=== PATIENT | female | born 1990 | race Two or more races ===

== ENCOUNTER 2019-04-15 19:53 | Emergency (ER) | payer SELFPAY ==
[~2019-04-15] VITALS: Ht 157.5 cm; Wt 63.5 kg
--- OUTSIDE RECORDS SUMMARY | 2019-04-15 19:56 | XMS REPORT | Continuity of Care Document ---
Author Author [facility] Address Unknown Phone Unavailable Care Team Providers Care Burrer Hand Name Role Phone [employer] Unavailable Unavailable Problems Problem Status Onset Date Classification Date Reported Comments Source Generalized anxiety disorder Active 04/13/2019 [facility] Language barrier, cultural differences Active 04/13/2019 [facility] ONDINA Active 04/13/2019 [facility] Medications Medication Details Route Status Patient Instructions Ordering Provider Order Date Source FLUoxetine (PROZAC) 10 mg capsule Take 2 capsules by mouth daily. Oral Active 04/10/2019 [facility] propranolol (INDERAL) 10 mg tablet Take 1 tablet by mouth 2 times daily as needed (anxiety). Oral Active 04/10/2019 [facility] FLUoxetine (PROZAC) 10 mg capsule Take 1 capsule by mouth daily. Oral No Longer Active 02/20/2019 [facility] FLUoxetine (PROZAC) 20 mg capsule Take 2 capsules by mouth daily. Oral Active 12/12/2018 [facility] propranolol (INDERAL) 10 mg tablet Take 1 tablet by mouth daily as needed for up to 60 days (take as needed for anxiety). Oral No Longer Active 12/12/2018 [facility] FLUoxetine (PROZAC) 20 mg capsule Take 2 capsules by mouth daily. Oral No Longer Active 12/12/2018 [facility] FLUoxetine (PROZAC) 20 mg capsule Take 2 capsules by mouth daily for 60 days. Oral No Longer Active 10/25/2018 [facility] propranolol (INDERAL) 10 mg tablet Take 1 tablet by mouth daily as needed for up to 60 days (take as needed for anxiety). Oral No Longer Active 10/25/2018 [facility] FLUoxetine (PROZAC) 20 mg capsule Take 2 capsules by mouth daily for 60 days. Oral No Longer Active 10/25/2018 [facility] Allergies, Adverse Reactions, Alerts No Known Medication Allergies Immunizations No Data Provided for This Section Results No Data Provided for This Section Pathology Reports No Data Provided for This Section Diagnostic Reports No Data Provided for This Section Consultation Notes No Data Provided for This Section Discharge Summaries No Data Provided for This Section History and Physicals No Data Provided for This Section Vital Signs Vital Sign Value Date Comments Source Systolic (mm Hg) 141 04/10/2019 [facility] Diastolic (mm Hg) 92 04/10/2019 [facility] Heart Rate 95 04/10/2019 [facility] Temperature Oral (F) 37.06 Tabitha 04/10/2019 [facility] Respitory Rate 18 04/10/2019 [facility] Height 157.5 cm 04/10/2019 [facility] Weight 63.957 04/10/2019 [facility] Systolic (mm Hg) 106 02/20/2019 [facility] Diastolic (mm Hg) 74 02/20/2019 [facility] Heart Rate 82 02/20/2019 [facility] Temperature Oral (F) 36.33 Tabitha 02/20/2019 [facility] Respitory Rate 16 02/20/2019 [facility] Height 157.5 cm 02/20/2019 [facility] Weight 63.957 02/20/2019 [facility] Systolic (mm Hg) 110 01/09/2019 [facility] Diastolic (mm Hg) 74 01/09/2019 [facility] Heart Rate 78 01/09/2019 [facility] Temperature Oral (F) 36.22 Tabitha 01/09/2019 [facility] Respitory Rate 18 01/09/2019 [facility] Height 157.5 cm 01/09/2019 [facility] Weight 62.596 01/09/2019 [facility] Systolic (mm Hg) 120 12/12/2018 [facility] Diastolic (mm Hg) 71 12/12/2018 [facility] Heart Rate 78 12/12/2018 [facility] Temperature Oral (F) 36.67 Tabitha 12/12/2018 [facility] Respitory Rate 18 12/12/2018 [facility] Height 157.5 cm 12/12/2018 [facility] Weight 63.504 12/12/2018 [facility] Systolic (mm Hg) 115 10/25/2018 [facility] Diastolic (mm Hg) 79 10/25/2018 [facility] Heart Rate 76 10/25/2018 [facility] Temperature Oral (F) 36.5 Tabitha 10/25/2018 [facility] Respitory Rate 18 10/25/2018 [facility] Weight 63.05 10/25/2018 [facility] Encounters Location Location Details Encounter Type Encounter Number Reason For Visit Attending Provider ADM Date DC Date Status Source Outpatient [id number] WINSTON MARTINEZ 09/07/[address] [facility] Outpatient [id number] WINSTON MARTINEZ 09/11/[address] [facility] Outpatient [id number] JAZMIN APPLE 10/12/[address] [facility] Travel [id number] 10/25/2018 [facility] Mental Health Services BT Office Visit [id number] Anna Reynoso MD 10/25/2018 10/25/2018 [facility] Travel [id number] 12/12/2018 [facility] Mental Health Services BT Office Visit [id number] Sohan Cardona MD 12/12/2018 12/12/2018 [facility] Travel [id number] 12/21/2018 [facility] Behavioral Health/Counseling BTMHS Office Visit [id number] Lisseth Solo 12/21/2018 12/21/2018 [facility] Travel [id number] 01/09/2019 [facility] Mental Health Services BT Office Visit [id number] Maria A Nova MD 01/09/2019 01/09/2019 [facility] Travel [id number] 02/20/2019 [facility] Mental Health Services BT Office Visit [id number] Maria A Nova MD 02/20/2019 02/20/2019 [facility] Behavioral Health/Counseling BTS Office Visit [id number] Lisseth Solo 02/20/2019 03/19/2019 [facility] Travel [id number] 04/10/2019 [facility] Mental Health Services BT Office Visit [id number] Maria A Nova MD 04/10/2019 04/10/2019 [facility] Behavioral Health/Counseling BTS Office Visit [id number] Lisseth Solo 04/10/2019 04/12/2019 [facility] Procedures No Data Provided for This Section Assessment and Plan No Data Provided for This Section Plan of Care Plan of Care Date Source IMM Influenza Seasonal Jul to December (>/=19 yrs) 07/16/2019 [facility] Upcoming EncountersDateTypeSpecialtyCare TeamDescription 05/08/2019 Office Visit Psychology Daniel Solo[address] [place] [address] 05/08/2019 Office Visit Psychiatry Maria A Nova MD[address] [phone] return Health MaintenanceDue DateLast DoneComments Cervical Cancer Scrn (3 Yrs) 2011 IMM Influenza Seasonal Jul to December (>/=19 yrs) 07/16/2019 04/12/2019 [facility] Upcoming EncountersDateTypeSpecialtyCare TeamDescription 04/10/2019 Office Visit Psychiatry Maria A Nova MD[address] [phone] Health MaintenanceDue DateLast DoneComments Cervical Cancer Scrn (3 Yrs) 2011 IMM Influenza Seasonal Oct to December (>/=19 yrs) 07/16/2019 04/10/2019 [facility] Upcoming EncountersDateTypeSpecialtyCare TeamDescription 03/15/2019 Office Visit Psychology Tolu Solo [place] [address] 04/10/2019 Office Visit Psychiatry Maria A Nova MD[address] [phone] (Fax) Health MaintenanceDue DateLast DoneComments Cervical Cancer Scrn (3 Yrs) 2011 IMM Influenza Seasonal Jul to December (>/=19 yrs) 07/16/2019 03/12/2019 [facility] Upcoming EncountersDateTypeSpecialtyCare TeamDescription 02/20/2019 Office Visit Psychiatry Maria A Nova MD[address] [phone] (Fax) 02/20/2019 Office Visit Psychology Tolu Solo [facility] [place] [address] [facility] DateLast DoneComments Cervical Cancer Scrn (3 Yrs) 2011 IMM Influenza Seasonal Jul to December (>/=19 yrs) 07/16/2019 02/18/2019 [facility] Upcoming EncountersDateTypeSpecialtyCare TeamDescription 01/31/2019 Office Visit Psychiatry Diane Yanez, ResidentMDDepartment of Psychiatry - [id number] [place], [place] [phone] Dr that is Early in the moring 02/20/2019 Office Visit Psychiatry Maria A Nova MD[address] [phone] (Fax) Health MaintenanceDue DateLast DoneComments Cervical Cancer Scrn (3 Yrs) 2011 IMM Influenza Seasonal Jul to December (>/=19 yrs) 07/16/2019 2019 [facility] Upcoming EncountersDateTypeSpecialtyCare TeamDescription 01/09/2019 Office Visit Psychiatry Maria A Nova MD[address] [phone] (Fax) [facility] DateLast DoneComments Cervical Cancer Scrn (3 Yrs) 2011 IMM Influenza Seasonal Jul to December (>/=19 yrs) 07/16/2018 01/05/2019 [facility] Upcoming EncountersDateTypeSpecialtyCare TeamDescription 01/09/2019 Office Visit Psychiatry Maria A Nova MD[address] [phone] (Fax) [facility] DateLast DoneComments Cervical Cancer Scrn (3 Yrs) 2011 IMM Influenza Seasonal Jul to December (>/=19 yrs) 07/16/2018 12/21/2018 [facility] Upcoming EncountersDateTypeSpecialtyCare TeamDescription 12/12/2018 Office Visit Psychiatry Sohan Cardona MD[id number] [place], [place] [phone] (Fax) Patient requested different provider due to work schedule 12/19/2018 Office Visit Psychiatry Maria A Nova MD[address] [phone] (Fax) return 12/21/2018 Office Visit Psychology Daniel Solo4 [facility] [place] [address] [facility] DateLast DoneComments Cervical Cancer Scrn (3 Yrs) 2011 IMM Influenza Seasonal Jul to December (>/=19 yrs) 07/16/2018 12/07/2018 [facility] Upcoming EncountersDateTypeSpecialtyCare TeamDescription 12/12/2018 Office Visit Psychiatry Sohan Cardona MD[id number] [place], [place] [phone] (Fax) Patient requested different provider due to work schedule Health MaintenanceDue DateLast DoneComments Cervical Cancer Scrn (3 Yrs) 2011 IMM Influenza Seasonal Jul to December (>/=19 yrs) 07/16/2018 12/03/2018 [facility] IMM Influenza Seasonal Oct to December (>/=19 yrs) 07/16/2018 [facility] Cervical Cancer Scrn (3 Yrs) 2011 [facility] Social History Social History Date Source Tobacco UseTypesPacks/DayYears UsedDate Never Smoker Smokeless Tobacco: Never Used Alcohol UseDrinks/Weekoz/WeekComments Never Alcohol HabitsAnswerDate Recorded How often do you have a drink containing alcohol? Never 10/25/2018 How many drinks containing alcohol do you have on a typical day when you are drinking? Not asked How often do you have six or more drinks on one occasion? 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 10/25/2018 [facility] Family History No Data Provided for This Section Advance Directives No Data Provided for This Section Functional Status No Data Provided for This Section
--- OUTSIDE RECORDS SUMMARY | 2019-04-15 19:56 | XMS REPORT | Clinical Summary ---
Author Author [facility] Organization [facility] Address Unknown Phone Unavailable Care Team Providers Care Boiler Repair Supervisor Name Role Phone PCP Unavailable Allergies Not on File Medications End Date Status Medication Sig Dispensed Refills Start Date Active FLUoxetine (PROZAC) 10 mg Take 2 60 capsule 1 capsuleIndications: capsules by 9 Marital/partner mouth daily. relational problem, Generalized anxiety disorder Active propranolol (INDERAL) 10 Take 1 tablet 60 tablet 1 mg tabletIndications: by mouth 2 9 Marital/partner times daily relational problem, as needed Generalized anxiety (anxiety). disorder 12/12/2018 Discontinued FLUoxetine (PROZAC) 20 mg Take 2 60 capsule 0 capsuleIndications: capsules by 9 Generalized anxiety mouth daily disorder for 60 days. 12/12/2018 Discontinued propranolol (INDERAL) 10 Take 1 tablet 60 tablet 0 mg tabletIndications: by mouth 9 Generalized anxiety daily as disorder needed for up to 60 days (take as needed for anxiety). 02/20/2019 Discontinued FLUoxetine (PROZAC) 20 mg Take 2 180 capsule 1 capsuleIndications: capsules by 9 Generalized anxiety mouth daily. disorder 02/10/2019 propranolol (INDERAL) 10 Take 1 tablet 30 tablet 2 mg tabletIndications: by mouth 9 Generalized anxiety daily as disorder needed for up to 60 days (take as needed for anxiety). 04/10/2019 Discontinued FLUoxetine (PROZAC) 10 mg Take 1 90 capsule 1 capsuleIndications: capsule by 9 Marital/partner mouth daily. relational problem, Generalized anxiety disorder Active Problems Not on file Encounters Care Team Description Date Type Specialty Lisseth Solo ONDINA (generalized anxiety disorder) (Primary Dx) 04/10/2019 Office Visit Psychology Maria A Nova MD Marital/partner relational problem; Generalized anxiety disorder 04/10/2019 Office Visit Psychiatry 04/10/2019 Travel Lisseth Solo ONDINA (generalized anxiety disorder) (Primary Dx); Marital/partner relational problem 02/20/2019 Office Visit Psychology Maria A Nova MD Marital/partner relational problem (Primary Dx); Generalized anxiety disorder 02/20/2019 Office Visit Psychiatry 02/20/2019 Travel Maria A Nova MD Marital/partner relational problem (Primary Dx); Generalized anxiety disorder; Language barrier, cultural differences 01/09/2019 Office Visit Psychiatry 01/09/2019 Travel SoloLisseth ONDINA (generalized anxiety disorder) (Primary Dx) 12/21/2018 Office Visit Psychology 12/21/2018 Travel Sohan Cardona MD Generalized anxiety disorder (Primary Dx) 12/12/2018 Office Visit Psychiatry 12/12/2018 Travel Anna Reynoso MD [place], [facility] Generalized anxiety disorder (Primary Dx) 10/25/2018 Office Visit Psychiatry 10/25/2018 Travel after 04/11/2018 Social History Date Tobacco Use Types Packs/Day Years Used Never Smoker Smokeless Tobacco: Never Used Drinks/Week oz/Week Comments Alcohol Use Never Alcohol Habits Answer Date Recorded How often do you have a drink containing alcohol? Never 10/25/2018 How many drinks containing alcohol do you have on Not asked a typical day when you are drinking? How often do you have six or more drinks on one Not asked occasion? Sex Assigned at Date Recorded Not on file Industry Job Start Date Occupation Not on file Not on file Not on file Travel End Travel History Travel Start No recent travel history available. Last Filed Vital Signs Reading Time Taken Comments Vital Sign 141/92 04/10/2019 8:30 AM CDT Blood Pressure 95 04/10/2019 8:30 AM CDT Pulse 37.1 C (98.7 F) 04/10/2019 8:30 AM CDT Temperature 18 04/10/2019 8:30 AM CDT Respiratory Rate 100% 04/10/2019 8:30 AM CDT Oxygen Saturation - - Inhaled Oxygen Concentration 64 kg (141 lb) 04/10/2019 8:30 AM CDT Weight 157.5 cm (5' 2") 04/10/2019 8:30 AM CDT Height 25.79 04/10/2019 8:30 AM CDT Body Mass Index Plan of Treatment Care Team Description Date Type Specialty Solo Lisseth [address] [employer] [address] 05/08/2019 Office Visit Psychology Maria A Nova MD [address] [place] [address] return 05/08/2019 Office Visit Psychiatry Health Maintenance Due Date Last Done Comments Cervical Cancer Scrn (3 2011 Yrs) IMM Influenza Seasonal 07/16/2019 Oct to December (>/=19 yrs) Results Not on fileafter 04/11/2018 Insurance Type Payer Benefit Subscriber ID Effective Phone Address Plan / Dates Group [employer] xxxxxxxxxx 2018-P [phone] [address] [facility] [address] [place] [address]
--- OUTSIDE RECORDS SUMMARY | 2019-04-15 19:56 | XMS REPORT | Clinical Summary ---
Author Author [facility] Organization [facility] Address Unknown Phone Unavailable Care Team Providers Care Hopper Attendant Name Role Phone PCP Unavailable Allergies Not [...] Travel Anna Reynoso MD [place], [facility] Generalized anxiety disorder (Primary Dx) 10/25/2018 Office Visit Psychiatry 10/25/2018 Travel after 04/14/2018 Social History Date Tobacco Use Types Packs/Day [...] Team Description Date Type Specialty Solo Lisseth [address] WIRE TWISTING MACHINE [place] [address] 05/08/2019 Office Visit Psychology Maria A Nova MD [address] [place], [place] [phone] return 05/08/2019 Office Visit Psychiatry Health Maintenance Due Date Last Done Comments Cervical Cancer Scrn (3 2011 Yrs) IMM Influenza Seasonal 07/16/2019 Oct to December (>/=19 yrs) Results Not on fileafter 04/14/2018 Insurance Type Payer Benefit Subscriber ID Effective Phone Address Plan / Dates Group [email or web address] xxxxxxxxxx 2018-P [phone] [address] [facility] [address] [place] [address]
--- OUTSIDE RECORDS SUMMARY | 2019-04-15 19:57 | XMS REPORT | Clinical Summary ---
Author Author [facility] Organization [facility] Address Unknown Phone Unavailable Care Team Providers Care Die Polisher Name Role Phone PCP Unavailable Allergies Not on File Medications End Date Status Medication Sig Dispensed Refills Start Date Active FLUoxetine (PROZAC) 20 mg Take 2 180 capsule 1 capsuleIndications: capsules by 9 Generalized anxiety mouth daily. disorder 02/10/2019 Active propranolol (INDERAL) 10 Take 1 tablet 30 tablet 2 mg tabletIndications: by mouth 9 Generalized anxiety daily as disorder needed for up to 60 days (take as needed for anxiety). 12/12/2018 Discontinued FLUoxetine (PROZAC) 20 mg Take 2 60 capsule 0 capsuleIndications: capsules by 9 Generalized anxiety mouth daily disorder for 60 days. 12/12/2018 Discontinued propranolol (INDERAL) 10 Take 1 tablet 60 tablet 0 mg tabletIndications: by mouth 9 Generalized anxiety daily as disorder needed for up to 60 days (take as needed for anxiety). Active Problems Not on file Encounters Care Team Description Date Type Specialty 12/21/2018 Travel Sohan Cardona MD Generalized anxiety disorder (Primary Dx) 12/12/2018 Office Visit Psychiatry 12/12/2018 Travel Anna Reynoso MD [place], [facility] Generalized anxiety disorder (Primary Dx) 10/25/2018 Office Visit Psychiatry 10/25/2018 Travel after 12/20/2017 Social History Date Tobacco Use Types Packs/Day Years Used Never Smoker Smokeless Tobacco: Never Used Alcohol Use Drinks/Week oz/Week Comments Never Alcohol Habits Answer Date Recorded How [...] travel history available. Last Filed Vital Signs Time Taken Vital Sign Reading 12/12/2018 8:06 AM FACILITIES TECHNICIAN Blood Pressure 120/71 12/12/2018 8:06 AM FACILITIES TECHNICIAN Pulse 78 12/12/2018 8:06 AM FACILITIES TECHNICIAN Temperature 36.7 C (98 F) 12/12/2018 8:06 AM FACILITIES TECHNICIAN Respiratory Rate 18 12/12/2018 8:06 AM FACILITIES TECHNICIAN Oxygen Saturation 98% - Inhaled Oxygen - Concentration 12/12/2018 8:06 AM FACILITIES TECHNICIAN Weight 63.5 kg (140 lb) 12/12/2018 8:06 AM FACILITIES TECHNICIAN Height 157.5 cm (5' 2") 12/12/2018 8:06 AM FACILITIES TECHNICIAN Body Mass Index 25.61 Plan of Treatment Care Team Description Date Type Specialty Maria A Nova MD [address] [place] [address] 01/09/2019 Office Visit Psychiatry Health Maintenance Due Date Last Done Comments Cervical Cancer Scrn (3 2011 Yrs) IMM Influenza Seasonal 07/16/2018Jul to December (>/=19 yrs) Results Not on fileafter 12/20/2017 Insurance Type Payer Benefit Subscriber ID Effective Phone Address Plan / Dates Group [employer] xxxxxxxxxx 2018-P [phone] [address] [place] [address] [employer] xxxxxxxxxx 2018-P [phone] [address] [address] [place] [address]
--- OUTSIDE RECORDS SUMMARY | 2019-04-15 19:57 | XMS REPORT | Clinical Summary ---
Author Author [facility] Organization [facility] Address Unknown Phone Unavailable Care Team Providers Care Hostess Name Role Phone PCP Unavailable Allergies Not on File Medications Not on file Active Problems Not on file Encounters Care Team Description Date Type Specialty 10/25/2018 Travel after 10/24/2017 Social History Date Tobacco Use Types Packs/Day Years Used Never Assessed Sex Assigned at Date Recorded Not on file Industry Job Start Date Occupation Not on file Not on file Not on file Travel End Travel History Travel Start No recent travel history available. Last Filed Vital Signs Not on file Plan of Treatment Health Maintenance Due Date Last Done Comments Cervical Cancer Scrn (3 2011 Yrs) IMM Influenza Seasonal 07/16/2018 Oct to December (>/=19 yrs) Results Not on fileafter 10/24/2017 Insurance Type Payer Benefit Subscriber ID Effective Phone Address Plan / Dates Group [employer] xxxxxxxxxx 2018-P [phone] [address] [facility] [address] [place] [address]
--- OUTSIDE RECORDS SUMMARY | 2019-04-15 19:57 | XMS REPORT | Clinical Summary ---
Author Author [facility] Organization [facility] Address Unknown Phone Unavailable Care Team Providers Care Carpenter'S Assistant Name Role Phone PCP Unavailable Allergies Not [...] Encounters Care Team Description Date Type Specialty Maria A Nova MD Marital/partner relational problem (Primary Dx); Generalized anxiety disorder; Language barrier, cultural differences 01/09/2019 Office Visit Psychiatry 01/09/2019 Travel Lisseth Solo ONDINA (generalized anxiety disorder) (Primary Dx) 12/21/2018 Office Visit Psychology 12/21/2018 Travel Sohan Cardona MD Generalized anxiety disorder (Primary Dx) 12/12/2018 Office Visit Psychiatry 12/12/2018 Travel Anna Reynoso MD [place], [place], [place] Generalized anxiety disorder (Primary Dx) 10/25/2018 Office Visit Psychiatry 10/25/2018 Travel after 01/29/2018 Social History Date Tobacco Use Types Packs/Day [...] Vital Signs Time Taken Vital Sign Reading 01/09/2019 8:18 AM CDT Blood Pressure 110/74 01/09/2019 8:18 AM CDT Pulse 78 01/09/2019 8:18 AM CDT Temperature 36.2 C (97.2 F) 01/09/2019 8:18 AM CDT Respiratory Rate 18 01/09/2019 8:18 AM CDT Oxygen Saturation 98% - Inhaled Oxygen - Concentration 01/09/2019 8:18 AM CDT Weight 62.6 kg (138 lb) 01/09/2019 8:18 AM CDT Height 157.5 cm (5' 2") 01/09/2019 8:18 AM CDT Body Mass Index 25.24 Plan of Treatment Care Team Description Date Type Specialty Diane Yanez, ResidentMD Department of Psychiatry - BT [address] [place] [address] Patient request any other Dr that is Early in the moring 01/31/2019 Office Visit Psychiatry Maria A Nova MD [address] [place], [place] [phone] 02/20/2019 Office Visit Psychiatry Health Maintenance Due Date Last Done Comments Cervical Cancer Scrn (3 2011 Yrs) IMM Influenza Seasonal 07/16/2019 Oct to December (>/=19 yrs) Results Not on fileafter 01/29/2018 Insurance Type Payer Benefit Subscriber ID Effective Phone Address Plan / Dates Group [employer] xxxxxxxxxx 2018-P [phone] [address] [email or web address] [facility] [address] [place] [address]
--- OUTSIDE RECORDS SUMMARY | 2019-04-15 19:57 | XMS REPORT | Clinical Summary ---
Author Author [facility] Organization [facility] Address Unknown Phone Unavailable Care Team Providers Care Hand Cell Tuber Name Role Phone PCP Unavailable Allergies Not on File Medications End Date Status Medication Sig Dispensed Refills Start Date Active FLUoxetine (PROZAC) 20 mg Take 2 180 capsule 1 capsuleIndications: capsules by 9 Generalized anxiety mouth daily. disorder 12/12/2018 Discontinued FLUoxetine (PROZAC) 20 mg Take 2 60 capsule 0 capsuleIndications: capsules by 9 Generalized anxiety mouth daily disorder for 60 days. 12/12/2018 Discontinued propranolol (INDERAL) 10 Take 1 tablet 60 tablet 0 mg tabletIndications: by mouth 9 Generalized anxiety daily as disorder needed for up to 60 days (take as needed for anxiety). 02/10/2019 propranolol (INDERAL) 10 Take 1 tablet [...] Travel Anna Reynoso MD [place], Karolyn E, [place] Generalized anxiety disorder (Primary Dx) 10/25/2018 Office Visit Psychiatry 10/25/2018 Travel after 02/17/2018 Social History Date Tobacco Use Types Packs/Day [...] Nova MD [address] [place] [address] [phone] 02/20/2019 Office Visit Psychiatry Lisseth Solo [address] PS[facility]CHIATRY [place] [address] 02/20/2019 Office Visit Psychology Health Maintenance Due Date Last Done Comments Cervical Cancer Scrn (3 2011 Yrs) IMM Influenza Seasonal 07/16/2019Jul to December (>/=19 yrs) Results Not on fileafter 02/17/2018 Insurance Type Payer Benefit Subscriber ID Effective Phone Address Plan / Dates Group [employer] xxxxxxxxxx 2018-P [phone] [address] [place] [employer] [facility] [address] [place] [address]
--- OUTSIDE RECORDS SUMMARY | 2019-04-15 19:57 | XMS REPORT | Clinical Summary ---
Author Author [facility] Organization [facility] Address Unknown Phone Unavailable Care Team Providers Care Director Meetings Name Role Phone PCP Unavailable Allergies Not on File Medications End Date Status Medication Sig Dispensed Refills Start Date Active FLUoxetine (PROZAC) 10 mg Take 1 90 capsule 1 capsuleIndications: capsule by 9 Marital/partner mouth daily. relational problem, Generalized anxiety disorder 12/12/2018 Discontinued FLUoxetine (PROZAC) 20 mg [...] Encounters Care Team Description Date Type Specialty 04/10/2019 Lisseth Zuniga ONDINA (generalized anxiety disorder) (Primary Dx); Marital/partner relational problem 02/20/2019 Office Visit Psychology Maria A Nova MD Marital/partner relational problem (Primary Dx); Generalized anxiety disorder 02/20/2019 Office Visit Psychiatry 02/20/2019 Travel Maria A Nova MD Marital/partner relational problem (Primary Dx); Generalized anxiety disorder; Language barrier, cultural differences 01/09/2019 Office Visit Psychiatry 01/09/2019 Lisseth Zuniga ONDINA (generalized anxiety disorder) (Primary Dx) 12/21/2018 Office Visit Psychology 12/21/2018 Travel Sohan Cardona MD Generalized anxiety disorder (Primary Dx) 12/12/2018 Office Visit Psychiatry 12/12/2018 Travel Anna Reynoso MD [place], Karolyn E [facility] Generalized anxiety disorder (Primary Dx) 10/25/2018 Office Visit Psychiatry 10/25/2018 Travel after 04/09/2018 Social History Date Tobacco Use Types Packs/Day [...] Nova MD [address] [place] [address] 04/10/2019 Office Visit Psychiatry Health Maintenance Due Date Last Done Comments 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
--- OUTSIDE RECORDS SUMMARY | 2019-04-15 19:57 | XMS REPORT | Clinical Summary ---
Author Author [facility] Organization [facility] Address Unknown Phone Unavailable Care Team Providers Care Planning Division Superintendent Name Role Phone PCP Unavailable Allergies Not [...] Travel Anna Reynoso MD [place], Karolyn E, [facility] Generalized anxiety disorder (Primary Dx) 10/25/2018 Office Visit Psychiatry 10/25/2018 Travel after 03/11/2018 Social History Date Tobacco Use Types Packs/Day [...] Signs Reading Time Taken Comments Vital Sign 106/74 02/20/2019 8:11 AM CDT Blood Pressure 82 02/20/2019 8:11 AM CDT Pulse 36.3 C (97.4 F) 02/20/2019 8:11 AM CDT Temperature 16 02/20/2019 8:11 AM CDT Respiratory Rate 99% 02/20/2019 8:11 AM CDT Oxygen Saturation - - Inhaled Oxygen Concentration 64 kg (141 lb) 02/20/2019 8:11 AM CDT Weight 157.5 cm (5' 2") 02/20/2019 8:11 AM CDT Height 25.79 02/20/2019 8:11 AM CDT Body Mass Index Plan of Treatment Care Team Description Date Type Specialty Lisseth Solo [address] 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
--- OUTSIDE RECORDS SUMMARY | 2019-04-15 19:57 | XMS REPORT | Clinical Summary ---
Author Author [facility] Organization [facility] Address Unknown Phone Unavailable Care Team Providers Care Freight Checker Name Role Phone PCP Unavailable Allergies Not on File Medications End Date Status Medication Sig Dispensed Refills Start Date 12/24/2018 Active FLUoxetine (PROZAC) 20 mg Take 2 60 capsule 0 capsuleIndications: capsules by 9 Generalized anxiety mouth daily disorder for 60 days. 12/24/2018 Active propranolol (INDERAL) 10 Take 1 tablet 60 tablet 0 mg tabletIndications: by mouth 9 Generalized anxiety daily as disorder needed for up to 60 days (take as needed for anxiety). Active Problems Not on file Encounters Care Team Description Date Type Specialty Anna Reynoso MD [place], Karolyn E, ResidentMD Generalized anxiety disorder (Primary Dx) 10/25/2018 Office Visit Psychiatry 10/25/2018 Travel after 12/06/2017 Social History Date Tobacco Use Types Packs/Day [...] Vital Signs Time Taken Vital Sign Reading 10/25/2018 9:42 AM GETTER FILLER Blood Pressure 115/79 10/25/2018 9:42 AM GETTER FILLER Pulse 76 10/25/2018 9:42 AM GETTER FILLER Temperature 36.5 C (97.7 F) 10/25/2018 9:42 AM GETTER FILLER Respiratory Rate 18 10/25/2018 9:42 AM GETTER FILLER Oxygen Saturation 96% - Inhaled Oxygen - Concentration 10/25/2018 9:42 AM GETTER FILLER Weight 63 kg (139 lb) - Height - - Body Mass Index - Plan of Treatment Care Team Description Date Type Specialty DulceSohan gill MD [address] [place], [place] [id number] Patient requested different provider due to work schedule 12/12/2018 Office Visit Psychiatry Maria A Nova MD [address] [place], [place] [id number] return 12/19/2018 Office Visit Psychiatry Lisseth Solo [address] PSYCHIATRY [place] [address] new 12/21/2018 Office Visit Psychology Health Maintenance Due Date Last Done Comments Cervical Cancer Scrn (3 2011 Yrs) IMM Influenza Seasonal 07/16/2018Jul to December (>/=19 yrs) Results Not on fileafter 12/06/2017 Insurance Type Payer Benefit Subscriber ID Effective Phone Address Plan / Dates Group [employer] xxxxxxxxxx 2018-P [phone] [address] [employer] [place] [address] [place] [address]
--- OUTSIDE RECORDS SUMMARY | 2019-04-15 19:58 | XMS REPORT | Clinical Summary ---
Author Author [facility] Organization [facility] Address Unknown Phone Unavailable Care Team Providers Care Distillery Supervisor Name Role Phone PCP Unavailable Allergies [...] 10/25/2018 Office Visit Psychiatry 10/25/2018 Travel after 12/02/2017 Social History Date Tobacco Use Types Packs/Day [...] Taken Vital Sign Reading 10/25/2018 9:42 AM TIER LIFT OPERATOR Blood Pressure 115/79 10/25/2018 9:42 AM TIER LIFT OPERATOR Pulse 76 10/25/2018 9:42 AM TIER LIFT OPERATOR Temperature 36.5 C (97.7 F) 10/25/2018 9:42 AM TIER LIFT OPERATOR Respiratory Rate 18 10/25/2018 9:42 AM TIER LIFT OPERATOR Oxygen Saturation 96% - Inhaled Oxygen - Concentration 10/25/2018 9:42 AM TIER LIFT OPERATOR Weight 63 kg (139 lb) - Height - - Body Mass Index - Plan of Treatment Care Team Description Date Type Specialty Sohan Cardona MD [address] [place] [address] Patient requested different provider due to work schedule 12/12/2018 Office Visit Psychiatry Health Maintenance Due Date Last Done Comments Cervical Cancer Scrn (3 2011 Yrs) IMM Influenza Seasonal 07/16/2018Jul to December (>/=19 yrs) Results Not on fileafter 12/02/2017 Insurance Type Payer Benefit Subscriber ID Effective Phone Address Plan / Dates Group [employer] xxxxxxxxxx 2018-P [phone] [address] [facility] [facility] [address] [place] [address]
--- OUTSIDE RECORDS SUMMARY | 2019-04-15 19:58 | XMS REPORT ---
Author [facility] Address Unknown Phone Unavailable Care Team Providers Care Teachers Aide Name Role Phone Unavailable Unavailable Problems This patient has no known problems. Allergies, Adverse Reactions, Alerts This patient has no known allergies or adverse reactions. Medications This patient has no known medications. Encounters Start Date/Time End Date/Time Encounter Type Admission Type Attending [facility] Facility Care Department Encounter ID 2019-05-08 00:00:00 2019-05-08 00:00:[address] [facility] [id number] 2019-05-08 00:00:00 2019-05-08 00:00:[address] [facility] [id number] 2019-04-10 09:11:59 2019-04-10 09:11:[address] [facility] [id number] 2019-04-10 09:11:56 2019-04-10 09:11:[address] [facility] [id number] 2019-04-10 00:00:00 2019-04-10 00:00:[address] [facility] [id number] 2019-03-15 00:00:00 2019-03-15 00:00:[address] [facility] [id number] 2019-03-15 00:00:00 2019-03-15 00:00:[address] [facility] [id number] 2019-03-13 00:00:00 2019-03-13 00:00:[address] [facility] [id number] 2019-02-20 08:54:56 2019-02-20 08:54:[address] [facility] [id number] 2019-02-20 08:46:36 2019-02-20 08:46:[address] [facility] [id number] 2019-01-31 00:00:00 2019-01-31 00:00:[address] [facility] [id number] 2019-01-31 00:00:00 2019-01-31 00:00:[address] [facility] [id number] 2019-01-09 08:57:03 2019-01-09 08:57:[address] [facility] [id number] 2018-12-21 08:28:32 2018-12-21 08:28:[address] [facility] [id number] 2018-12-19 00:00:00 2018-12-19 00:00:[address] [facility] [id number] 2018-12-12 08:07:45 2018-12-12 08:07:[address] [facility] [id number] 2018-12-06 00:00:00 2018-12-06 00:00:[address] [facility] [id number] 2018-10-25 09:14:29 2018-10-25 09:14:[address] [facility] [id number]
--- OUTSIDE RECORDS SUMMARY | 2019-04-15 19:58 | XMS REPORT | Clinical Summary ---
Author Author [facility] Organization [facility] Address Unknown Phone Unavailable Care Team Providers Care Lapper Name Role Phone PCP Unavailable Allergies Not [...] Encounters Care Team Description Date Type Specialty Lisseht Solo ONDINA (generalized anxiety disorder) (Primary Dx) 12/21/2018 Office Visit Psychology 12/21/2018 Travel Sohan Cardona MD Generalized anxiety disorder (Primary Dx) 12/12/2018 Office Visit Psychiatry 12/12/2018 Travel Anna Reynoso MD [place], Karolyn E, [facility] Generalized anxiety disorder (Primary Dx) 10/25/2018 Office Visit Psychiatry 10/25/2018 Travel after 01/04/2018 Social History Date Tobacco Use Types Packs/Day [...] Taken Vital Sign Reading 12/12/2018 8:06 AM SERVICE CENTER MANAGER Blood Pressure 120/71 12/12/2018 8:06 AM SERVICE CENTER MANAGER Pulse 78 12/12/2018 8:06 AM SERVICE CENTER MANAGER Temperature 36.7 C (98 F) 12/12/2018 8:06 AM SERVICE CENTER MANAGER Respiratory Rate 18 12/12/2018 8:06 AM SERVICE CENTER MANAGER Oxygen Saturation 98% - Inhaled Oxygen - Concentration 12/12/2018 8:06 AM SERVICE CENTER MANAGER Weight 63.5 kg (140 lb) 12/12/2018 8:06 AM SERVICE CENTER MANAGER Height 157.5 cm (5' 2") 12/12/2018 8:06 AM SERVICE CENTER MANAGER Body Mass Index 25.61 Plan of Treatment Care Team Description Date Type Specialty Maria A Nova MD [address] [place] [address] 01/09/2019 Office Visit Psychiatry Health Maintenance Due Date Last Done Comments Cervical Cancer Scrn (3 2011 Yrs) IMM Influenza Seasonal 07/16/2018 Oct to December (>/=19 yrs) Results Not on fileafter 01/04/2018 Insurance Type Payer Benefit Subscriber ID Effective Phone Address Plan / Dates Group [employer] xxxxxxxxxx 2018-P [phone] [address] [facility] [address] [place] [address]
[2019-04-15] MEDS ORDERED: DIATRIZOATE MEGL/DIATRIZOA SOD 30 ML BTL PO ONE (21:57)
== END 2019-04-15 21:45 | disposition left against medical advice (07) ==
LOC: ER 19:53
DX: R10.32 Left lower quadrant pain (principal); R10.31 Right lower quadrant pain